=== PATIENT | male | born 1985 | race Caucasian/White ===

== ENCOUNTER 2016-06-27 19:09 | Emergency (ER) | payer MEDICARE, MEDICAID ==
[2016-06-27 19:10] VITALS: BMI 27.3
[2016-06-27 19:19] VITALS: BP 105/55; PULSE 72; RESP 16; TEMP 98.2; O2SAT 100
== END 2016-06-27 19:57 | disposition left against medical advice (07) ==
LOC: H.ER 19:09
DX: Z02.89 Encounter for other administrative examinations (principal)

== ENCOUNTER 2016-08-26 16:22 | Emergency (ER) | payer MEDICARE, MEDICAID ==
[2016-08-26 16:23] VITALS: BMI 27.3
[2016-08-26 16:28] VITALS: BP 137/76; PULSE 120; RESP 20; TEMP 98.2; O2SAT 100
--- NOTE | 2016-08-26 17:17 | ED PDOC ---
HPI: Psych/Substance Abuse Time Seen by Provider: 08/26/16 16:45 Chief Complaint (Nursing): Substance Abuse Chief Complaint (Provider): Substance Abuse History Per: Patient, Other (Police ) History/Exam Limitations: no limitations Current Symptoms Are (Timing): Still Present Modifying Factor(s): Other (Heroin) Additional Complaint(s): Pedrito Holloway is a 31 year old male that was brought to the ED by PD after causing a disturbance in the homeless group home, during which which he was continuously cleaning and repeatedly banging his head against a wall. Patient admits to using heroin at around 12:00 PM today, but denies any other drug or alcohol use. Past Medical History Reviewed: Historical Data, Nursing Documentation, Vital Signs Vital Signs: Last Vital Signs Temp 98.2 F 08/26/16 16:26 Pulse 120 H 08/26/16 16:26 Resp 20 08/26/16 16:26 BP 137/76 08/26/16 16:26 Pulse Ox 100 08/26/16 16:26 - Medical History PMH: Anxiety, Depression, Schizophrenia Denies: Diabetes, Hepatitis, HIV, HTN, Chronic Kidney Disease, Seizures, Sexually Transmitted Disease - Family History Family History: States: Unknown Family Hx - Immunization History Hx Tetanus Toxoid Vaccination: No Hx Influenza Vaccination: No Hx Pneumococcal Vaccination: No - Home Medications Home Medications: Ambulatory Orders Medication Instructions Recorded Divalproex [Depakote DR] 500 mg PO BID #60 tcp 07/12/16 PARoxetine [Paxil] 10 mg PO QAM #30 tab 07/12/16 QUEtiapine [SEROquel] 50 mg PO DAILY #30 tab 07/12/16 QUEtiapine [Seroquel] 100 mg PO HS #60 tab 07/12/16 busPIRone [Buspar] 10 mg PO TID #90 tab 07/12/16 - Allergies Allergies/Adverse Reactions: Allergies Allergy/AdvReac Type Severity Reaction Status Date / Time No Known Allergies Allergy Verified 07/23/16 12:42 Review of Systems ROS Statement: Except As Marked, All Systems Reviewed And Found Negative Physical Exam - Reviewed Nursing Documentation Reviewed: Yes Vital Signs Reviewed: Yes - Physical Exam Appears: Positive for: Non-toxic, No Acute Distress Head Exam: Positive for: ATRAUMATIC, NORMOCEPHALIC Skin: Positive for: Normal Color, Warm Eye Exam: Positive for: Normal appearance Cardiovascular/Chest: Positive for: Regular Rate, Rhythm. Negative for: Murmur Respiratory: Positive for: Normal Breath Sounds. Negative for: Wheezing Neurologic/Psych: Positive for: Alert, Oriented, Other (Patient is calm and cooperative.) - ECG O2 Sat by Pulse Oximetry: 100 (RA) Pulse Ox Interpretation: Normal - Progress ED Course And Treament: PATIENT OBSERVED IN ED. NOTED STEADY GAIT. TOLERATING FOOD/DRINK IN ED. Medical Decision Making Medical Decision Making: Impression: Heroin Use Plan: * Patient is calm, is being observed in ED. Scribe Attestation: Documented by Annita Madera, acting as a scribe for Vicente Mercado PA-C. Provider Scribe Attestation: All medical record entries made by the Scribe were at my direction and personally dictated by me. I have reviewed the chart and agree that the record accurately reflects my personal performance of the history, physical exam, medical decision making, and the department course for this patient. I have also personally directed, reviewed, and agree with the discharge instructions and disposition. Disposition - Clinical Impression Clinical Impression: Heroin abuse - Patient ED Disposition Is Patient to be Admitted: No - Disposition Disposition: Routine/Home Disposition Time: 19:35 Condition: FAIR Instructions: Narcotic Abuse (ED)
== END 2016-08-26 19:40 | disposition home or self-care (01) ==
LOC: H.ER 16:22
DX: F11.10 Opioid abuse, uncomplicated (principal); F20.9 Schizophrenia, unspecified; F32.9 Major depressive disorder, single episode, unspecified; F41.9 Anxiety disorder, unspecified

== ENCOUNTER 2017-08-25 20:56 | Emergency (ER) | payer MEDICARE, MEDICAID ==
[2017-08-25 20:56] VITALS: BMI 28.8
[2017-08-25 21:00] VITALS: O2SAT 99
[2017-08-25] MEDS ORDERED: Tdap Vaccine 0.5 ml Vial (10-64 yrs) IM ONE ×2 (21:30→21:44)
--- NOTE | 2017-08-25 21:39 | ED PDOC ---
HPI: General Adult Time Seen by Provider: 08/25/17 21:21 Chief Complaint (Nursing): Medical Clearance Chief Complaint (Provider): clearance for incarceration History Per: Patient, Other (PO) History/Exam Limitations: intoxication Additional Complaint(s): 32 y/o male here in policy custody for medical and psychiatric clearance for incarceration. Patient with self-inflicted cuts to left arm from a knife, states he has been using heroin and cocaine for the last two days and cut his arm "sometime yesterday" because he was "mad". Patient states he does this often when he his angry. Denies numbness/weakness left upper extremity, limitation of movement. Last tetanus unknown. Past Medical History Reviewed: Historical Data, Nursing Documentation, Vital Signs Vital Signs: Last Vital Signs Temp 99 F 08/25/17 20:58 Pulse 81 08/25/17 20:58 Resp 18 08/25/17 20:58 BP 149/93 H 08/25/17 20:58 Pulse Ox 99 08/25/17 21:44 - Medical History PMH: Anxiety, Depression, Hepatitis, Pancreatitis, Schizophrenia Denies: Alzheimer's Disease, Asthma, Atrial Fibrillation, Bronchitis, Cardia Arrhythmia, CHF, COPD, Dementia, Diabetes, Emphysema, HIV, HTN, Hypercholesterolemia, Hyperthyroidism, Hypothyroidism, Kidney Stones, Migraine, Mitral Valve Prolapse, Multiple Sclerosis, Parkinson's Disease, Peripheral Edema , Pneumonia, Pulmonary Embolism, Chronic Kidney Disease, Seizures, Sexually Transmitted Disease, Sleep Apnea, TIA - Surgical History Surgical History: No Surg Hx Denies: Pacemaker - Family History Family History: States: Unknown Family Hx - Immunization History Hx Tetanus Toxoid Vaccination: No Hx Influenza Vaccination: Yes Hx Pneumococcal Vaccination: No - Home Medications Home Medications: Ambulatory Orders Medication Instructions Recorded Divalproex [Depakote ER] 500 mg PO DAILY 08/18/17 Quetiapine Fumarate [Seroquel] 200 mg PO HS 08/18/17 Benztropine [Cogentin] 1 mg PO BID #60 tab 08/22/17 QUEtiapine [SEROquel] 200 mg PO HS #30 tab 08/22/17 busPIRone [Buspar] 10 mg PO BID #60 tab 08/22/17 risperiDONE [RisperDAL Tab] 2 mg PO BID #60 tab 08/22/17 Bacitracin Ointment [Bacitracin] 1 applic TOP BID #1 tube 08/25/17 Cephalexin [cephalexin] 500 mg PO Q6 #27 cap 08/25/17 - Allergies Allergies/Adverse Reactions: Allergies Allergy/AdvReac Type Severity Reaction Status Date / Time No Known Allergies Allergy Verified 08/12/17 11:25 Review of Systems ROS Statement: Except As Marked, All Systems Reviewed And Found Negative Musculoskeletal: Positive for: Arm Pain Physical Exam - Reviewed Nursing Documentation Reviewed: Yes Vital Signs Reviewed: Yes - Physical Exam Appears: Positive for: Well, Non-toxic, No Acute Distress Head Exam: Positive for: ATRAUMATIC, NORMAL INSPECTION, NORMOCEPHALIC Skin: Positive for: Normal Color Eye Exam: Positive for: Normal appearance ENT: Positive for: Normal ENT Inspection Cardiovascular/Chest: Positive for: Regular Rate, Rhythm Respiratory: Positive for: Normal Breath Sounds Gastrointestinal/Abdominal: Positive for: Normal Exam Extremity: Positive for: Normal ROM, Other (multiple linear lacerations noted to left upper arm, the deepest of which adipose tissue exposed, with underyling older lacerations noted. No active bleeding, surrounding tenderness. Distal NV/ motor intact) Neurologic/Psych: Positive for: Alert, Oriented - ECG O2 Sat by Pulse Oximetry: 99 - Progress ED Course And Treament: No wound closure indicated due to unknown time-frame of wound, contamination and possible risk of infection; lacerations irrigated thoroughly with 500 mL normal saline, bacitracin applied, bandaged. Tetanus ordered. Bacitracin and Keflex rx provided (dose given in ED) Patient evaluated by experimental worker and cleared for discharge as per Dr. Abdalla Patient educated on wound care, advised follow up PMD within 2-3 days. Return precautions given Disposition - Clinical Impression Clinical Impression: Laceration of left upper arm, Polysubstance abuse, Schizophrenia - Patient ED Disposition Is Patient to be Admitted: No Counseled Patient/Family Regarding: Studies Performed, Diagnosis, Need For Followup, Rx Given - Disposition Referrals: [facility] [Outside] Disposition: Discharged/Transfer to Law Enforcement Disposition Time: 23:11 Condition: STABLE Additional Instructions: Patient medically and psychiatrically cleared for incarceration Prescriptions: Bacitracin Ointment [Bacitracin] 1 applic TOP BID #1 tube Cephalexin [cephalexin] 500 mg PO Q6 #27 cap Instructions: Schizophrenia, Polysubstance Abuse, Wound Care Forms: [employer] (British) Print Language: EGYPTIAN
[2017-08-25] MEDS ORDERED: Povidone Iodine Oint 10% Foilpak UD ONE (21:48)
[2017-08-25 23:36] VITALS: BP 137/81; PULSE 89; RESP 15; TEMP 97.9
== END 2017-08-25 23:36 ==
LOC: H.ER 20:56
DX: S41.112A Laceration without foreign body of left upper arm, initial encounter (principal); F19.10 Other psychoactive substance abuse, uncomplicated; F14.10 Cocaine abuse, uncomplicated; F11.10 Opioid abuse, uncomplicated; F20.9 Schizophrenia, unspecified; Z86.59 Personal history of other mental and behavioral disorders

== ENCOUNTER 2017-08-28 15:01 | Emergency (ER) | payer MEDICARE, MEDICAID ==
[2017-08-28 15:01] VITALS: BMI 28.8
[2017-08-28 15:08] VITALS: TEMP 99.4
--- NOTE | 2017-08-28 15:31 | ED PDOC ---
HPI: Psych/Substance Abuse Time Seen by Provider: 08/28/17 15:15 Chief Complaint (Nursing): Substance Abuse Chief Complaint (Provider): Substance abuse History Per: Patient History/Exam Limitations: no limitations Onset/Duration Of Symptoms: Hrs (today) Current Symptoms Are (Timing): Still Present Suicide/Self Injury Attempted (Context): None Involuntary Hold By: None Additional Complaint(s): Pedrito Nash is a 32 year old male, with unknown past medical history, who was brought to the emergency department via EMS for heroin abuse, unknown time of ingestion. Per EMS, patient was found lying in the street, arousable and no injuries reported. No other medical complaints. PMD: None provided. Past Medical History Reviewed: Historical Data, Nursing Documentation, Vital Signs Vital Signs: Last Vital Signs Temp 99.4 F 08/28/17 15:05 Pulse 110 H 08/28/17 15:05 Resp 20 08/28/17 15:05 BP 123/85 08/28/17 15:05 Pulse Ox 96 08/28/17 15:05 - Medical History PMH: Anxiety, Depression, Pancreatitis, Schizophrenia Denies: Alzheimer's Disease, Asthma, Atrial Fibrillation, Bronchitis, Cardia Arrhythmia, CHF, COPD, Dementia, Diabetes, Emphysema, Hepatitis, HIV, HTN, Hypercholesterolemia, Hyperthyroidism, Hypothyroidism, Kidney Stones, Migraine, Mitral Valve Prolapse, Multiple Sclerosis, Parkinson's Disease, Peripheral Edema , Pneumonia, Pulmonary Embolism, Chronic Kidney Disease, Seizures, Sexually Transmitted Disease, Sleep Apnea, TIA - Surgical History Surgical History: Denies: Pacemaker - Family History Family History: States: Unknown Family Hx - Social History Current smoker - smoking cessation education provided: Yes (Heavy smoker >10 cigarettes daily) Alcohol: None Drugs: Opiates - Immunization History Hx Tetanus Toxoid Vaccination: No Hx Influenza Vaccination: Yes Hx Pneumococcal Vaccination: No - Home Medications Home Medications: Ambulatory Orders Medication Instructions Recorded Divalproex [Depakote ER] 500 mg PO DAILY 08/18/17 Quetiapine Fumarate [Seroquel] 200 mg PO HS 08/18/17 Benztropine [Cogentin] 1 mg PO BID #60 tab 08/22/17 QUEtiapine [SEROquel] 200 mg PO HS #30 tab 08/22/17 busPIRone [Buspar] 10 mg PO BID #60 tab 08/22/17 risperiDONE [RisperDAL Tab] 2 mg PO BID #60 tab 08/22/17 Bacitracin Ointment [Bacitracin] 1 applic TOP BID #1 tube 08/25/17 Cephalexin [cephalexin] 500 mg PO Q6 #27 cap 08/25/17 - Allergies Allergies/Adverse Reactions: Allergies Allergy/AdvReac Type Severity Reaction Status Date / Time No Known Allergies Allergy Verified 08/28/17 15:04 Review of Systems ROS Statement: Except As Marked, All Systems Reviewed And Found Negative Psych: Positive for: Other (heroin abuse) Physical Exam - Reviewed Nursing Documentation Reviewed: Yes Vital Signs Reviewed: Yes - Physical Exam Appears: Positive for: Non-toxic Head Exam: Positive for: ATRAUMATIC, NORMOCEPHALIC Skin: Positive for: Normal Color, Warm, Dry Eye Exam: Positive for: EOMI. Negative for: PERRL (pupils pinpoint) Neck: Positive for: Painless ROM, Supple (nontender) Cardiovascular/Chest: Positive for: Regular Rate, Rhythm. Negative for: Murmur Respiratory: Positive for: Normal Breath Sounds. Negative for: Respiratory Distress Gastrointestinal/Abdominal: Positive for: Normal Exam, Soft. Negative for: Tenderness Back: Negative for: L CVA Tenderness, R CVA Tenderness, Vertebral Tenderness Extremity: Positive for: Normal ROM (upper and lower extremities). Negative for : Deformity, Swelling Neurologic/Psych: Positive for: Alert, Oriented (x3). Negative for: Motor/ Sensory Deficits (no focal deficits) - ECG O2 Sat by Pulse Oximetry: 96 (RA) Pulse Ox Interpretation: Normal - Progress Re-evaluation Time: 19:02 Condition: Improved (Awake alert no focal neuro deficits) Medical Decision Making Medical Decision Making: Time: 15:15 Initial Plan: --Reevaluation ~ Scribe Attestation: Documented by Jonathan Chun, acting as a scribe for Abel Hughes MD. Provider Scribe Attestation: All medical record entries made by the Scribe were at my direction and personally dictated by me. I have reviewed the chart and agree that the record accurately reflects my personal performance of the history, physical exam, medical decision making, and the department course for this patient. I have also personally directed, reviewed, and agree with the discharge instructions and disposition. Disposition - Clinical Impression Clinical Impression: Drug abuse - Patient ED Disposition Is Patient to be Admitted: No Counseled Patient/Family Regarding: Diagnosis, Need For Followup - Disposition Referrals: [facility] [Outside] Disposition: Routine/Home Disposition Time: 19:04 Condition: FAIR Instructions: Drug Abuse and Drug Addiction (DC) Forms: [employer] (Kiswahili)
[2017-08-28 19:13] VITALS: BP 132/70; PULSE 81; RESP 19; O2SAT 98
== END 2017-08-28 19:13 | disposition home or self-care (01) ==
LOC: H.ER 15:01
DX: F19.10 Other psychoactive substance abuse, uncomplicated (principal); F17.210 Nicotine dependence, cigarettes, uncomplicated; F20.9 Schizophrenia, unspecified; F32.9 Major depressive disorder, single episode, unspecified; F41.9 Anxiety disorder, unspecified; K85.90 Acute pancreatitis without necrosis or infection, unspecified

== ENCOUNTER 2017-09-28 15:50 | Emergency (ER) | payer MEDICARE, MEDICAID ==
[2017-09-28 15:51] VITALS: BMI 28.8
--- NOTE | 2017-09-28 16:48 | ED PDOC ---
HPI: Psych/Substance Abuse Time Seen by Provider: 09/28/17 16:41 Chief Complaint (Nursing): Substance Abuse Chief Complaint (Provider): heroin abuse History Per: Patient (32 y/o male brought EMS for evaluation of heroin/ methadone ingestion. Patient states he is a heroin addict and used 1 bag an hour prior to arrival. States that prior to ED arrival , noted police in his area and became concerned as he recently bought methadone for use this week. Used 120 mg of methadone at once in effort to hide. Denies any symptoms but was concerned that he ingested too much and wishes to be observed in ED for a few hours.) Past Medical History Reviewed: Historical Data, Nursing Documentation, Vital Signs Vital Signs: Last Vital Signs Temp 97.9 F 09/28/17 15:56 Pulse 96 H 09/28/17 16:11 Resp 24 09/28/17 16:11 BP 131/85 09/28/17 16:11 Pulse Ox 100 09/28/17 16:11 - Medical History PMH: Anxiety, Depression, Pancreatitis, Schizophrenia (paranoid) Denies: Alzheimer's Disease, Asthma, Atrial Fibrillation, Bronchitis, Cardia Arrhythmia, CHF, COPD, Dementia, Diabetes, Emphysema, Hepatitis, HIV, HTN, Hypercholesterolemia, Hyperthyroidism, Hypothyroidism, Kidney Stones, Migraine, Mitral Valve Prolapse, Multiple Sclerosis, Parkinson's Disease, Peripheral Edema , Pneumonia, Pulmonary Embolism, Chronic Kidney Disease, Seizures, Sexually Transmitted Disease, Sleep Apnea, TIA - Surgical History Surgical History: Denies: Pacemaker - Family History Family History: States: Unknown Family Hx - Immunization History Hx Tetanus Toxoid Vaccination: No Hx Influenza Vaccination: Yes Hx Pneumococcal Vaccination: No - Home Medications Home Medications: Ambulatory Orders Medication Instructions Recorded Divalproex [Depakote ER] 500 mg PO DAILY 08/18/17 Quetiapine Fumarate [Seroquel] 200 mg PO HS 08/18/17 Benztropine [Cogentin] 1 mg PO BID #60 tab 08/22/17 QUEtiapine [SEROquel] 200 mg PO HS #30 tab 08/22/17 busPIRone [Buspar] 10 mg PO BID #60 tab 08/22/17 risperiDONE [RisperDAL Tab] 2 mg PO BID #60 tab 08/22/17 Bacitracin Ointment [Bacitracin] 1 applic TOP BID #1 tube 08/25/17 Cephalexin [cephalexin] 500 mg PO Q6 #27 cap 08/25/17 Gabapentin 300 mg PO TID 09/18/17 Naloxone HCl [Narcan] 4 mg NS ONCE PRN #1 spray 09/28/17 Ondansetron [Ondansetron Odt] 4 mg PO Q8 PRN #4 tab.rapdis 09/28/17 - Allergies Allergies/Adverse Reactions: Allergies Allergy/AdvReac Type Severity Reaction Status Date / Time No Known Allergies Allergy Verified 09/18/17 17:15 Review of Systems ROS Statement: Except As Marked, All Systems Reviewed And Found Negative Physical Exam - Reviewed Nursing Documentation Reviewed: Yes Vital Signs Reviewed: Yes - Physical Exam Appears: Positive for: Well, Non-toxic, No Acute Distress Head Exam: Positive for: ATRAUMATIC, NORMAL INSPECTION, NORMOCEPHALIC Skin: Positive for: Normal Color, Warm, DRY Eye Exam: Positive for: EOMI, Normal appearance, PERRL ENT: Positive for: Normal ENT Inspection Neck: Positive for: Normal, Painless ROM Cardiovascular/Chest: Positive for: Regular Rate, Rhythm Respiratory: Positive for: CNT, Normal Breath Sounds Gastrointestinal/Abdominal: Positive for: Normal Exam, Soft Back: Positive for: Normal Inspection Extremity: Positive for: Normal ROM Neurologic/Psych: Positive for: Alert, Oriented - ECG ECG Rhythm: Positive for: Sinus Rhythm (NSR 82 BPM; NO ECTOPY NO ACUTE CHANGES) O2 Sat by Pulse Oximetry: 100 Disposition - Clinical Impression Clinical Impression: Heroin abuse - Patient ED Disposition Is Patient to be Admitted: No - Disposition Referrals: [facility] [Outside] Disposition: Routine/Home Disposition Time: 18:19 Condition: FAIR Prescriptions: Naloxone HCl [Narcan] 4 mg NS ONCE PRN #1 spray PRN Reason: Opiate Reversal Ondansetron [Ondansetron Odt] 4 mg PO Q8 PRN #4 tab.rapdis PRN Reason: Nausea/Vomiting Instructions: Drug Abuse and Drug Addiction (DC) Print Language: KISWAHILI
[2017-09-28 18:01] VITALS: RESP 18
[2017-09-28 18:21] VITALS: BP 122/82; PULSE 78; TEMP 97.8; O2SAT 100
== END 2017-09-28 18:50 | disposition home or self-care (01) ==
LOC: H.ER 15:50
DX: F11.10 Opioid abuse, uncomplicated (principal); F32.9 Major depressive disorder, single episode, unspecified; F41.9 Anxiety disorder, unspecified

== ENCOUNTER 2017-10-04 10:36 | Emergency (ER) | payer MEDICARE, MEDICAID ==
[2017-10-04 10:37] VITALS: BMI 28.8
[2017-10-04 10:40] VITALS: TEMP 98.6
[2017-10-04 10:46] VITALS: O2SAT 98
[2017-10-04] MEDS ORDERED: Sodium Chloride 0.9% 1,000 ML IV STA (11:07)
--- NOTE | 2017-10-04 11:33 | ED PDOC ---
HPI: Psych/Substance Abuse Time Seen by Provider: 10/04/17 10:47 Chief Complaint (Nursing): Substance Abuse Chief Complaint (Provider): Substance Abuse History Per: Patient, EMS, Other (Police) History/Exam Limitations: no limitations Additional Complaint(s): 32-year-old male brought into ED by EMS and Police after he was caught with possession of heroin. Pt admits he swallowed the evidence when police found him. Pt reports he already used on bag injected prior. Pt states he usually uses up to 4 bags a day. (-) chest pain, (-) shortness of breath. Pt admits he used cocaine yesterday, but does not use on regular basis. No other complaints. PMD: Provider TBD Past Medical History Reviewed: Historical Data, Nursing Documentation, Vital Signs Vital Signs: Last Vital Signs Temp 98.6 F 10/04/17 10:39 Pulse 84 10/04/17 10:39 Resp 20 10/04/17 10:39 BP 153/66 H 10/04/17 10:39 Pulse Ox 98 10/04/17 10:39 - Medical History PMH: Anxiety, Depression, Pancreatitis, Schizophrenia (paranoid) Denies: Alzheimer's Disease, Asthma, Atrial Fibrillation, Bronchitis, Cardia Arrhythmia, CHF, COPD, Dementia, Diabetes, Emphysema, Hepatitis, HIV, HTN, Hypercholesterolemia, Hyperthyroidism, Hypothyroidism, Kidney Stones, Migraine, Mitral Valve Prolapse, Multiple Sclerosis, Parkinson's Disease, Peripheral Edema , Pneumonia, Pulmonary Embolism, Chronic Kidney Disease, Seizures, Sexually Transmitted Disease, Sleep Apnea, TIA - Surgical History Surgical History: No Surg Hx Denies: Pacemaker - Family History Family History: States: Unknown Family Hx - Social History Drugs: Cocaine, Opiates (Heroin) - Immunization History Hx Tetanus Toxoid Vaccination: No Hx Influenza Vaccination: Yes Hx Pneumococcal Vaccination: No - Home Medications Home Medications: Ambulatory Orders Medication Instructions Recorded Divalproex [Depakote ER] 500 mg PO DAILY 08/18/17 Quetiapine Fumarate [Seroquel] 200 mg PO HS 08/18/17 Benztropine [Cogentin] 1 mg PO BID #60 tab 08/22/17 QUEtiapine [SEROquel] 200 mg PO HS #30 tab 08/22/17 busPIRone [Buspar] 10 mg PO BID #60 tab 08/22/17 risperiDONE [RisperDAL Tab] 2 mg PO BID #60 tab 08/22/17 Bacitracin Ointment [Bacitracin] 1 applic TOP BID #1 tube 08/25/17 Cephalexin [cephalexin] 500 mg PO Q6 #27 cap 08/25/17 Gabapentin 300 mg PO TID 09/18/17 Naloxone HCl [Narcan] 4 mg NS ONCE PRN #1 spray 09/28/17 Ondansetron [Ondansetron Odt] 4 mg PO Q8 PRN #4 tab.rapdis 09/28/17 - Allergies Allergies/Adverse Reactions: Allergies Allergy/AdvReac Type Severity Reaction Status Date / Time No Known Allergies Allergy Verified 10/04/17 10:39 Review of Systems ROS Statement: Except As Marked, All Systems Reviewed And Found Negative Constitutional: Negative for: Chills Gastrointestinal: Negative for: Nausea, Vomiting Neurological: Negative for: Numbness Physical Exam - Reviewed Nursing Documentation Reviewed: Yes Vital Signs Reviewed: Yes - Physical Exam Appears: Positive for: Well (Awake, Drowzy appearing, Responsive to all questions, Cooperative) Eye Exam: Negative for: Normal appearance ((+) Pupils are constricted 2 mm equal b/l) Cardiovascular/Chest: Positive for: Regular Rate, Rhythm Respiratory: Positive for: Normal Breath Sounds. Negative for: Respiratory Distress Gastrointestinal/Abdominal: Positive for: Normal Exam, Soft. Negative for: Tenderness Extremity: Positive for: Normal ROM. Negative for: Deformity, Swelling Neurologic/Psych: Positive for: Alert, Oriented (x 3) - Laboratory Results Result Diagrams: 10/04/17 11:28 10/04/17 11:28 - ECG O2 Sat by Pulse Oximetry: 98 (RA) Pulse Ox Interpretation: Normal - Progress Condition: Re-examined, Improved Medical Decision Making Medical Decision Making: Time: 11:06 Impression(s): Polysubstance Abuse, Under Arrest Plan: - EKG - Acetaminophen, - Alcohol Serum - CMP - Drug Screen, Urine - Salicylate Troponin I - CBC (with differential) - Sodium Chloride 0.9% 1,000 ml IV 1,000 mls/hr Toxicology (+) Urine Opiates Screen (+) Urine Methadone Screen (+) Urine Other Cocaine Metabolites (+) Urine Cannabinoids Screen Scribe Attestation: Documented by Oswald Baldwin, acting as a scribe for Mounika Hutchins MD. Provider Scribe Attestation: All medical record entries made by the Scribe were at my direction and personally dictated by me. I have reviewed the chart and agree that the record accurately reflects my personal performance of the history, physical exam, medical decision making, and the department course for this patient. I have also personally directed, reviewed, and agree with the discharge instructions and disposition. Disposition - Clinical Impression Clinical Impression: Polysubstance abuse - Patient ED Disposition Is Patient to be Admitted: No Doctor Will See Patient In The: Office Counseled Patient/Family Regarding: Diagnosis, Need For Followup - Disposition Referrals: Michele Boswell MD [Primary Care Provider] - Disposition: Discharged/Transfer to Law Enforcement Disposition Time: 14:20 Condition: STABLE Additional Instructions: patient is medically stable for incarceration. Instructions: Polysubstance Abuse Forms: [employer] (Arabic) - Pt Status Changed To: Hospital Disposition Of: Observation - POA Present On Arrival: None
[2017-10-04 11:52] LABS: BASO % 0.6 % (0.0-2.0); EOS # 0.1 K/uL (0.0-0.7); EOS % 1.2 % (0.0-4.0); HEMOGLOBIN 13.8 g/dL (12.0-18.0); LYMPH # 1.4 K/uL (1.0-4.3); LYMPH % 21.7 % (20.0-40.0); MEAN CELL VOLUME 88.3 fl (80.0-94.0); MEAN CORPUSCULAR HEMOGLOBIN 30.6 pg (27.0-31.0); MEAN CORPUSCULAR HGB CONC 34.6 g/dL (33.0-37.0); MEAN PLATELET VOLUME 8.5 fl (7.2-11.7); MONO # 0.4 K/uL (0.0-0.8); MONO % 6.8 % (0.0-10.0); NEUT # 4.3 K/uL (1.8-7.0); NEUT % 69.7 % (50.0-75.0); NRBC % 0.1 % (0.0-0.0); RBC 4.52 Mil/uL (4.40-5.90); RED CELL DISTRIBUTION WIDTH 12.9 % (11.5-14.5); WHITE BLOOD COUNT 6.2 K/uL (4.8-10.8)
[2017-10-04 11:55] LABS: ALB/GLOB RATIO 1.4 (1.0-2.1); ALBUMIN 4.1 g/dL (3.5-5.0); ALT/SGPT 87 U/L (21-72); AST/SGOT 65 U/L (17-59); BLOOD UREA NITROGEN 14 mg/dl (9-20); CALCIUM 9.2 mg/dL (8.4-10.2); GFR NON-AFRICAN AMERICAN > 60
[2017-10-04 12:07] LABS: ACETAMINOPHEN < 10.0 ug/ml (10.0-30.0); SALICYLATE < 1.0 mg/dl
[2017-10-04 12:31] LABS: BARBITURATES, UR NEGATIVE (NEGATIVE); BENZODIAZEPINES, UR NEGATIVE (NEGATIVE); OPIATES, UR POSITIVE (NEGATIVE); PHENCYCLIDINE, UR NEGATIVE (NEGATIVE)
[2017-10-04 15:22] VITALS: BP 132/72; PULSE 88; RESP 18
--- NOTE | 2017-10-06 10:07 | CARD ---
APPROVED REPORT EKG Measurement Heart [id number] <Conclusion> Normal sinus rhythm Normal ECG
== END 2017-10-04 15:10 ==
LOC: H.ER 10:36
DX: F19.10 Other psychoactive substance abuse, uncomplicated (principal); F11.10 Opioid abuse, uncomplicated; Z86.59 Personal history of other mental and behavioral disorders
CPT/HCPCS: 80053; 84484; 85025; 93005; 99283; G0480; J7030

== ENCOUNTER 2017-10-04 21:34 | Emergency (ER) | payer MEDICARE, MEDICAID ==
[2017-10-04 21:34] VITALS: BMI 28.8
[2017-10-04 21:39] VITALS: BP 153/83; PULSE 56; RESP 18; TEMP 98.3; O2SAT 99
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
== END 2017-10-05 00:48 ==
LOC: H.ER 21:34
DX: F11.10 Opioid abuse, uncomplicated (principal); Z00.8 Encounter for other general examination; F17.200 Nicotine dependence, unspecified, uncomplicated; Z86.59 Personal history of other mental and behavioral disorders

== ENCOUNTER 2017-10-09 12:35 | Emergency (ER) | payer MEDICARE, MEDICAID ==
[2017-10-09 12:36] VITALS: BMI 28.8
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
[2017-10-09 13:51] LABS: BARBITURATES, UR NEGATIVE (NEGATIVE); BENZODIAZEPINES, UR POSITIVE (NEGATIVE); OPIATES, UR POSITIVE (NEGATIVE); PHENCYCLIDINE, UR NEGATIVE (NEGATIVE)
[2017-10-09 15:53] VITALS: BP 136/80; PULSE 100; RESP 19; TEMP 98.6
[2017-10-09 20:56] VITALS: O2SAT 95
== END 2017-10-09 16:14 | disposition home or self-care (01) ==
LOC: H.ER 12:35
DX: F19.10 Other psychoactive substance abuse, uncomplicated (principal); F41.9 Anxiety disorder, unspecified
CPT/HCPCS: 82948; 99283; G0480

== ENCOUNTER 2018-04-30 23:18 | Emergency (ER) | payer MEDICARE, MEDICAID ==
[2018-04-30 23:19] VITALS: BMI 34.0
[2018-04-30 23:25] VITALS: BP 125/87; TEMP 97.5; O2SAT 98
--- NOTE | 2018-04-30 23:41 | ED PDOC ---
HPI: Psych/Substance Abuse Time Seen by Provider: 04/30/18 23:24 Chief Complaint (Nursing): Substance Abuse Chief Complaint (Provider): Substance Abuse History Per: Patient History/Exam Limitations: no limitations Onset/Duration Of Symptoms: Mins (prior to arrival) Current Symptoms Are (Timing): Still Present Suicide/Self Injury Attempted (Context): None Modifying Factor(s): Narcotics Additional Complaint(s): 32 year old male with a history of schizoaffective disorder presents to the ED via EMS for evaluation. EMS was called by the [facility] because patient was exhibiting bizarre behavior and is suspected of heroin use. In the ED, patient admits to using heroin today and regularly, in addition to cocaine. He offers no medical complaints or history. Patient is requesting water, then to leave and go to his family home. PMD: none provided Past Medical History Reviewed: Historical Data, Nursing Documentation, Vital Signs Vital Signs: Last Vital Signs Temp 97.5 F L 04/30/18 23:22 Pulse 136 H 04/30/18 23:22 Resp 20 04/30/18 23:22 BP 125/87 04/30/18 23:22 Pulse Ox 98 04/30/18 23:22 - Medical History PMH: Anxiety, Dementia, Depression, Hepatitis (C), Pancreatitis, Schizophrenia Denies: Alzheimer's Disease, Asthma, Atrial Fibrillation, Bronchitis, Cardia Arrhythmia, CHF, COPD, Diabetes, Emphysema, HIV, HTN, Hypercholesterolemia, Hyperthyroidism, Hypothyroidism, Kidney Stones, Migraine, Mitral Valve Prolapse, Multiple Sclerosis, Parkinson's Disease, Peripheral Edema, Pneumonia, Pulmonary Embolism, Chronic Kidney Disease, Seizures, Sexually Transmitted Disease, Sleep Apnea, TIA - Surgical History Surgical History: Denies: Pacemaker - Family History Family History: States: Unknown Family Hx - Immunization History Hx Tetanus Toxoid Vaccination: No Hx Influenza Vaccination: No Hx Pneumococcal Vaccination: No - Home Medications Home Medications: Ambulatory Orders Medication Instructions Recorded QUEtiapine [SEROquel] 200 mg PO HS #60 tab 03/27/18 Naloxone HCl [Narcan] 4 mg NS ONCE PRN #1 spray 04/02/18 OXcarbazepine [Trileptal] 300 mg PO BID #60 tab 04/14/18 Olanzapine [Zyprexa] 10 mg PO BID 60 Days #60 tablet 04/14/18 Clotrimazole/Betamethasone 15 gm EXT BID #1 tube 04/29/18 [Lotrisone] - Allergies Allergies/Adverse Reactions: Allergies Allergy/AdvReac Type Severity Reaction Status Date / Time No Known Allergies Allergy Verified 04/30/18 23:22 Review of Systems ROS Statement: Except As Marked, All Systems Reviewed And Found Negative Physical Exam - Reviewed Nursing Documentation Reviewed: Yes Vital Signs Reviewed: Yes - Physical Exam Appears: Positive for: Non-toxic, No Acute Distress Head Exam: Positive for: ATRAUMATIC, NORMAL INSPECTION, NORMOCEPHALIC Skin: Positive for: Normal Color, Warm, Dry Eye Exam: Positive for: Normal appearance, EOMI, PERRL Respiratory: Positive for: Normal Breath Sounds. Negative for: Respiratory Distress Extremity: Positive for: Normal ROM (upper and lower extremities). Negative for: Deformity Neurologic/Psych: Positive for: Alert, Oriented (x 3). Negative for: Motor/Sensory Deficits - ECG O2 Sat by Pulse Oximetry: 98 (RA) Pulse Ox Interpretation: Normal Medical Decision Making Medical Decision Makin:40 Impression: heroin abuse --Upon provider evaluation, patient is alert and oriented, speaking full sentences and is stable for discharge. Scribe Attestation: Documented by Sasha Mcclendon acting as a scribe for Ca Cruz MD Provider Scribe Attestation: All medical record entries made by the Scribe were at my direction and personally dictated by me. I have reviewed the chart and agree that the record accurately reflects my personal performance of the history, physical exam, medical decision making, and the department course for this patient. I have also personally directed, reviewed, and agree with the discharge instructions and disposition. Disposition - Clinical Impression Clinical Impression: Heroin abuse - Patient ED Disposition Is Patient to be Admitted: No - Disposition Referrals: [facility] [Outside] Disposition: Routine/Home Disposition Time: 23:44 Condition: GOOD Instructions: Drug Abuse and Drug Addiction (DC)
[2018-04-30 23:50] VITALS: PULSE 104; RESP 16
== END 2018-05-01 | disposition home or self-care (01) ==
LOC: H.ER 23:18
DX: F19.10 Other psychoactive substance abuse, uncomplicated (principal)

== ENCOUNTER 2018-07-04 18:55 | Emergency (ER) | payer MEDICARE, MEDICAID ==
[2018-07-04 18:55] VITALS: BMI 34.0
[2018-07-04 19:06] VITALS: RESP 16
[2018-07-04] MEDS ORDERED: Tdap Vaccine 0.5 ml Vial (10-64 yrs) IM ONE ×2 (19:18→19:38)
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
[2018-07-04 23:03] VITALS: BP 100/53; PULSE 76; TEMP 97.8; O2SAT 95
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
--- NOTE | 2018-07-05 11:19 | CT ---
Date of service: 07/04/2018 PROCEDURE: CT HEAD WITHOUT CONTRAST. HISTORY: HEAD CT COMPARISON: None available. TECHNIQUE: Axial computed tomography images were obtained through the head/brain without intravenous contrast. Radiation dose: Total exam DLP = 910.09 mGy-cm. This CT exam was performed using one or more of the following dose reduction techniques: Automated exposure control, adjustment of the mA and/or kV according to patient size, and/or use of iterative reconstruction technique. FINDINGS: HEMORRHAGE: No intracranial hemorrhage. BRAIN: Normal thorne-white matter differentiation and density are appreciated throughout the cerebrum and cerebellum with the brainstem appearing unremarkable as well. There is no mass effect. There is no suspicious extra-axial fluid collection and the midline brain anatomy appears diffusely unremarkable. VENTRICLES: Unremarkable. No hydrocephalus. CALVARIUM: No destructive bony lesion or displaced fracture identified including through the skullbase. PARANASAL SINUSES: Unremarkable as visualized. No significant inflammatory changes. MASTOID AIR CELLS: Unremarkable as visualized. No inflammatory changes. OTHER FINDINGS: None. IMPRESSION: Unremarkable unenhanced head CT. Concordant preliminary report from [facility], 07/04/2018, 9:10 p.m..
== END 2018-07-04 23:03 ==
LOC: H.ER 18:55
DX: S01.81XA Laceration without foreign body of other part of head, initial encounter (principal); Y04.0XXA Assault by unarmed brawl or fight, initial encounter; Y92.89 Other specified places as the place of occurrence of the external cause; F03.90 Unspecified dementia, unspecified severity, without behavioral disturbance, psychotic disturbance, mood disturbance, and anxiety; F20.9 Schizophrenia, unspecified; F32.9 Major depressive disorder, single episode, unspecified; F41.9 Anxiety disorder, unspecified; J32.0 Chronic maxillary sinusitis